=== PATIENT | female | born 1955 | race Asian ===

== ENCOUNTER 2025-06-22 20:11 | Emergency (ER) | payer OTHER ==
[~2025-06-22] VITALS: Ht 167.6 cm; Wt 63.6 kg
--- NOTE | 2025-06-22 20:33 | ED.PDOC ---
SOB-HPI HPI Comments Patient is a 70-year-old female with past medical history of hypertension and dyslipidemia, who was brought in by EMS due to dyspnea and shortness of breaths. According to the patient, she has been having issues with her lately who suffers from dementia, earlier this evening she was engaged in an argument with her and felt extremely stressed which led her to hyperventilate and she felt like she could not catch her breaths. Per EMS, on scene patient was noted to have SpO2 100% on room air, blood pressure 164 systolic. On arrival to the ER, patient notes her symptoms have now resolved, did not receive any treatment on route. On review of systems patient is denying everything. Chief Complaint: Shortness of Breath Time Seen by MD: 20:25 Reviewed notes: Resource Manager Notes Information Source: Patient, Emergency Med Personnel Mode of Arrival: EMS Severity: Mild Timing: Hours Duration: Intermittent Context: At Rest PE Risk Factors: None History of: Anxiety Prehospital treatment: 12 Lead EKG Associated Signs and Symptoms: Numbness (Behind ears, resolved since) Past Medical History Past Medical History (Contd): Hypertension, dyslipidemia Surgical History (Cont'd) Back surgery Social History Smoker: Non-Smoker Alcohol: Denies ETOH Use Drugs: Denies Drug Use Lives In: Home (With ) Constitutional: denies: chills, diaphoresis, fatigue, fever, malaise, sweats, weakness, others EENTM: denies: blurred vision, double vision, ear bleeding, ear discharge, ear drainage, ear pain, ear ringing, eye pain, eye redness, hearing loss, mouth pain, mouth swelling, nasal discharge, nose bleeding, nose congestion, nose pain, photophobia, tearing, throat pain, throat swelling, voice changes, others Respiratory: denies: cough, hemoptysis, orthopnea, SOB at rest, shortness of breath, SOB with excertion, stridor, wheezing, others Cardiovascular: denies: chest pain, dizzy spells, diaphoresis, Dyspnea on exertion, edema, irregular heart beat, left arm pain, lightheadedness, palpitations, PND, syncope, others Gastrointestinal: denies: abdomen distended, abdominal pain, blood streaked bowels, constipated, diarrhea, dysphagia, difficulty swallowing, hematemesis, melena, nausea, poor appetite, poor fluid intake, rectal bleeding, rectal pain, vomiting, others Genitourinary: denies: abnormal vagina bleeding, burning, dyspareunia, dysuria, flank pain, frequency, hematuria, incontinence, pain, , vagina discharge, urgency, others Neurological: denies: dizziness, fainting, headache, left sided numbness, left sided weakness, numbness, paresthesia, pre-existing deficit, right sided numbness, right sided weakness, seizure, speech problems, tingling, tremors, weakness, others Musculoskeletal: denies: back pain, gout, joint pain, joint swelling, muscle pa in, muscle stiffness, neck pain, others Integumetry: denies: bruises, change in color, change in hair/nails, dryness, laceration, lesions, lumps, rash, wounds, others Allergic/Immunocompromised: denies: Difficulty Healing, Frequent Infections, Hives, Itching, others Hematologic/Lymphatic: denies: anemia, blood clots, easy bleeding, easy bruising, swollen glands, others Endocrine: denies: excessive hunger, excessive sweating, excessive thirst, excessive urination, flushing, intolerance to cold, intolerance to heat, unexplained weight gain, unexplained weight loss, others Psychiatric: denies: anxiety, bipolar disorder, depression, hopeless, panic disorder, schizophrenia, sleepless, suicidal, others Physical Exam General Appearance: No Apparent Distress, Normal HEENT: Normal ENT Inspection, PERRL/EOMI Neck: Full Range of Motion, Non-Tender, Normal, Normal Inspection Respiratory: Lungs Clear, No Accessory Muscle Use, No Respiratory Distress, Normal Breath Sounds Cardiovascular: No Edema, No JVD, No Murmur, No Gallop, Regular Rate/Rhythm Breast Exam: Deferred Gastrointestinal: Non Tender, Normal Bowel Sounds Genitalia: Deferred Pelvic: Deferred Rectal: Rectal Exam not done Extremities: No calf tenderness (Negative Katrina sign), Normal range of motion, Non-tender, No pedal edema Neurologic: Alert, No Motor Deficits, Normal Mood, No Sensory Deficits Cerebellar Function: Normal Reflexes: NOT DONE Skin: Dry, Normal Color Peripheral Pulses: 2+ dorsalis pedis (R), 2+ dorsalis pedis (L) Lymphatic: NOT DONE Was a procedure done? Was a procedure done?: No Differential Dx Differential Diagnosis: Anxiety, Hyperventilation, Myocardial infarction, Panic Attack, Pneumonia X-Ray, Labs, Meds, VS Vital Signs Date Time Temp Pulse Resp B/P (MAP) Pulse Ox O2 Delivery O2 Flow Rate FiO2 06/22/25 20:15 97.8 76 18 164/94 95 97.8 06/22/25 20:15 95 Room Air* 0 21 Lab Test 06/22/25 21:45 06/22/25 20:56 Range/Units Troponin I High Sensitivity 4 3 L </=34 ng/L White Blood Count 9.6 4.4-10.8 10^3/uL Red Blood Count 4.54 4.0-5.20 10^6/uL Hemoglobin 13.7 12.2-16.2 g/dL Hematocrit 41.2 36.0-46.0 % Mean Corpuscular Volume 90.8 80.0-100.0 fL Mean Corpuscular Hemoglobin 30.2 28.0-32.0 pg Mean Corpuscular Hemoglobin Concent 33.3 32.0-36.0 g/dL Red Cell Distribution Width 13.4 11.8-14.3 % Platelet Count 299 140-450 10^3/uL Mean Platelet Volume 7.9 6.9-10.8 fL Neutrophils (%) (Auto) 67.4 37.0-80.0 % Lymphocytes (%) (Auto) 19.8 10.0-50.0 % Monocytes (%) (Auto) 7.1 0.0-12.0 % Eosinophils (%) (Auto) 5.0 0.0-7.0 % Basophils (%) (Auto) 0.7 0.0-2.0 % Neutrophils # (Auto) 6.5 1.6-8.6 10 ^3/uL Lymphocytes # (Auto) 1.9 0.4-5.4 10 ^3/uL Monocytes # (Auto) 0.7 0-1.3 10 ^3/uL Eosinophils # (Auto) 0.5 0-0.8 10 ^3/uL Basophils # (Auto) 0.1 0-0.2 10 ^3/uL Nucleated Red Blood Cells 0.0 % Sodium Level 146 H 136-145 mmol/L Potassium Level 3.9 3.5-5.1 mmol/L Chloride Level 107 98-107 mmol/L Carbon Dioxide Level 27 20-31 mmol/L Anion Gap 12 5-15 Blood Urea Nitrogen 10 9-23 mg/dL Creatinine 1.06 H 0.550-1.02 mg/dL Glomerular Filtration Rate Calc 56 >90 mL/min BUN/Creatinine Ratio 9.4 L 10.0-20.0 Serum Glucose 109 H 74-106 mg/dL Calcium Level 10.5 H 8.7-10.4 mg/dL Time of 1ST Reevaluation: 21:30 Reevaluation 1ST: Improved Time of 2ND Reevaluation: 22:15 Reevaluation 2ND: Improved Patient Education/Counseling: Diagnosis, Treatment, Prognosis, Need For Follow Up Family Education/Counseling: Diagnosis, Treatment, Prognosis, Need For Follow Up SEPSIS Sepsis Screen Date sepsis recognized/suspect: Jun 22, 2025 Time Sepsis recognized/suspect: 2014 Recent Procedure: No On Antibiotic Therapy: No Respiratory Rate >20: No Heart Rate >90: No Temp<36 C (96.8 F) or >38.3 C: No SBP <90 or MAP <65 mmHG: No New Acute Mental Status Change: No Is the patient on CPAP, BIPAP,: No Vital Signs Date Time Temp Pulse Resp B/P (MAP) Pulse Ox O2 Delivery O2 Flow Rate FiO2 06/22/25 20:15 97.8 76 18 164/94 95 97.8 06/22/25 20:15 95 Room Air* 0 21 Laboratory Tests Test 06/22/25 20:56 White Blood Count 9.6 10^3/uL (4.4-10.8) Departure 1 Departure Time of Disposition: 22:59 Impression: Primary Impression: Anxiety Additional Impression: Hyperventilation Disposition: HOME / SELF CARE / HOMELESS Condition: Stable Comments Patient continued to have stable vital signs throughout her ER stay, EKG largely unremarkable, serial troponins negative, chest x-ray showing no acute cardiopulmonary abnormality, saturating 96-100% on room air, notes significant improvement in respiratory symptoms. Patient was discharged from ER with instructions to engage in techniques for stress management, details were also explained to patient's son at bedside, all questions were answered and concerns were addressed. Patient and son were given strict instructions to return to ER if symptoms recur or persist, patient and son demonstrated understanding. Critical Care Note Critical Care Time?: No Stability Stability form required: No Heart Score Heart Score: Heart Score Response (Comments) Value History Slightly Suspicious 0 EKG Normal 0 Age >65 2 Risk Factors 1 or 2 risk factors 1 Troponin Normal limit 0 Total 3 LUCIO,EMAN RESIDENT Jun 22, 2025 20:33
[2025-06-22 21:10] LABS: Hematocrit 41.2 % (36.0-46.0); Hemoglobin 13.7 g/dL (12.2-16.2); Mean Corpuscular Hemoglobin 30.2 pg (28.0-32.0); Mean Corpuscular Volume 90.8 fL (80.0-100.0); Nucleated Red Blood Cells % 0.0 %
[2025-06-22 21:14] LABS: Chloride 107 mmol/L (98-107); Potassium 3.9 mmol/L (3.5-5.1)
[2025-06-22 21:15] LABS: Anion Gap 12 (5-15); Carbon Dioxide 27 mmol/L (20-31)
[2025-06-22 21:21] LABS: BUN/Creatinine Ratio 9.4 (10.0-20.0); Blood Urea Nitrogen 10 mg/dL (9-23); Calcium 10.5 mg/dL (8.7-10.4); Glucose 109 mg/dL (74-106); Sodium 146 mmol/L (136-145)
--- NOTE | 2025-06-22 21:40 | DVH ---
EXAM: XY CHEST PORTABLE HISTORY: sob TECHNIQUE: 1 view of the chest COMPARISON: None FINDINGS/IMPRESSION: LUNGS: No pleural effusion, consolidation, or pneumothorax. MEDIASTINUM: Unremarkable. BONES: No acute osseous abnormality. OTHER: None.
[2025-06-22 22:05] VITALS: BP 155/90; RESP 18; TEMP 97.4; O2SAT 99
[2025-06-22 22:17] VITALS: PULSE 71
--- NOTE | 2025-06-23 14:02 | ECG ---
[facility] Test Date: 2025-06-22 Test Time: 22:17:09 Pat Name: MITALI DE JESUS Department: Room: Gender: F Glass Handler: IC : [id number] Requested By: JENNIFER LUCIO Order Number: [id number] Reading MD: Puma Wagner Measurements Intervals [place] Rate: 71 P: 82 TN: 180 QRS: 142 QRSD: 75 T: 80 QT: 393 QTc: 428 Interpretive Statements Sinus rhythm Probable right ventricular hypertrophy ST elevation, consider inferior injury Electronically Signed On 06-23-2025 17:06:50 PST by Puma Wagner Please click the below link to view image of tracing.
== END 2025-06-22 23:35 | disposition home or self-care (01) ==
LOC: ER 20:11 → EDBD 20:11 → EDSEX 20:11 → ER 23:35
DX: F41.9 Anxiety disorder, unspecified (principal); E78.5 Hyperlipidemia, unspecified; I10 Essential (primary) hypertension; F03.94 Unspecified dementia, unspecified severity, with anxiety
CPT/HCPCS: 36415; 71045; 80048; 84484; 85025; 93005